=== PATIENT | male | born 1970 | race Caucasian/White ===

== ENCOUNTER 2020-01-16 12:32 | Emergency (ER) | payer OTHER, SELFPAY ==
--- NOTE | ~2020-01-16 | XR_ITS ---
EXAMINATION: XR hand LT min 3V DATE: 01/16/2020 12:59 INDICATION: Pain, swelling and erythema at the left second and third metacarpophalangeal joints. TECHNIQUE: Posteroanterior, oblique and lateral views of the left hand were obtained. COMPARISON: None. FINDINGS: Alignment is normal. No fracture. Joint spaces are normal. No cortical erosions or periosteal reactio n. Periarticular soft tissue swelling suggests at the dorsal aspect of the hand at the level of the h kilo of the metacarpals. IMPRESSION: 1. No osseous abnormality. Reviewed, dictated and finalized at location A. IMPRESSION: 1. No osseous abnormality.
[2020-01-16 12:37] VITALS: BP 120/97; PULSE 92; RESP 18; TEMP 36.9; O2SAT 97
--- NOTE | 2020-01-16 14:09 | ED.GENADULT ---
HPI - General Adult General Chief complaint: Extremity Injury, Upper Stated complaint: Infection L hand; sent from Urgent Care Time Seen by Provider: 01/16/20 13:16 Source: patient History of Present Illness HPI narrative: Patient presents with pain and swelling of the second and third knuckle of the left hand woke up with this morning.. Patient denies any trauma, patient been working in the backyard yesterday, reports wearing gloves. Patient denies any itching, on arrival to the emergency room he reported that the swelling and pain of the third knuckle is getting better almost improved. But the swelling of the second knuckle is still there which is worse with flexion and extension. Related Data Home Medications Medication Instructions Recorded Confirmed acyclovir 01/16/20 pantoprazole PO 01/16/20 Allergies Allergy/AdvReac Type Severity Reaction Status Date / Time acetaminophen Allergy Mild ITCHING Verified 01/16/20 12:41 hydrocodone Allergy Mild ITCHING Verified 01/16/20 12:41 Review of Systems Review of Systems: Narrative: CONSTITUTIONAL: Denies fever, chills, or sweats. EYES: Denies visual changes, redness, or discharge. ENT: Denies rhinorrhea, congestion, sore throat, or otalgia. CARDIOVASCULAR: Denies chest pain, palpitations, or edema. RESPIRATORY: Denies cough or dyspnea. GASTROINTESTINAL: Denies abdominal pain, nausea, vomiting, or diarrhea. GENITOURINARY: Denies dysuria or hematuria. SKIN: Denies rash or itching. MUSCULOSKELETAL: Denies back pain, joint pain, or myalgia. NEUROLOGIC: Denies headache, numbness, or weakness. PSYCHIATRIC: Denies anxiety or depression. PMFSH Social History Social History Gender identity (if verbalized by the patient): Male Exam Narrative: Exam Narrative: General appearance: Well-developed, well-nourished Skin: Normal color Head: Normocephalic, nontraumatic Eyes: Clear conjunctiva ENT: Oropharynx normal, ears normal, nose normal Neck: Supple, nontender Chest and respiratory: Airway patent, no respiratory distress, no accessory muscle use Heart: Regular rate/rhythm Vascular: Normal peripheral pulses, normal capillary refill. Musculoskeletal: Normal range of motion, nontender back. Left hand showed a lump likely ganglion cyst at the metatarsophalangeal joint dorsally of the left second finger. Tender to touch, slightly red, no erythema, no discharge, no signs of insect bite. Firm in consistency, no fluctuation. About 1 x 1 cm. Neurologic: Alert and oriented ?3, [employer] is normal as tested, no gross motor deficit Course Course Emergency Course: Unchanged, stable Vital Signs Vital signs: Vital Signs Temperature 36.9 C 01/16/20 12:37 Pulse Rate 92 01/16/20 12:37 Respiratory Rate 18 01/16/20 12:37 Blood Pressure 120/97 H 01/16/20 12:37 Pulse Oximetry 97 01/16/20 12:37 Temperature 36.9 C 01/16/20 12:37 Pulse Rate 92 01/16/20 12:37 Respiratory Rate 18 01/16/20 12:37 Blood Pressure 120/97 H 01/16/20 12:37 Pulse Oximetry 97 01/16/20 12:37 Procedures Abscess I/D hand: Date of Incision: 01/16/20 Time of Incision: 14:15 Side (if applicable): left Local Anesthetic: other anesthetic (Topical spray) Technique: needle aspiration Abcess I&D Additional Comments: I am not sure ,the lump on the second metatarsophalangeal joint is an abscess or a ganglion cyst. I tried to get needle aspiration which showed fresh red bright blood only. No purulent discharge. Patient tolerated the procedure well, the procedure was done under sterile field using Betadine and sterile drapes. Med
[2020-01-16] MEDS: CEPHALEXIN 500 MG CAPSULE PO (14:40)
[2020-01-16 14:41] VITALS: BP 147/82; PULSE 85; RESP 18; O2SAT 100
== END 2020-01-16 14:43 | disposition home or self-care (01) ==
PROVIDERS: Emergency Provider Emergency Medicine; PCP Nurse Practitioner Family
DX: M67.442 Ganglion, left hand (principal)
CPT/HCPCS: 10160; 73130; 99283; A9270

== ENCOUNTER 2023-01-07 20:44 | Emergency (ER) | payer BC, SELFPAY ==
[2023-01-07 20:46] VITALS: BP 163/83; PULSE 76; RESP 14; TEMP 36.6; O2SAT 99
--- NOTE | 2023-01-07 21:03 | ED.EAR ---
HPI - Ear Problem General Chief complaint: Ear Stated complaint: Right ear blockage Time Seen by Provider: 01/07/23 20:53 History of Present Illness HPI Narrative: 53-year-old male presented to the emergency department for evaluation of right ear pain and pressure. Patient states that the symptoms began yesterday and progressed to the day today. Patient states he does have history of seasonal allergies and has been taking Zyrtec twice daily for the last few days. Patient denies any cough colds or fevers. Patient does report some decreased in hearing on the right ear. Left ear has no issues. Related Data Home Medications Medication Instructions Recorded Confirmed acyclovir 400 mg tablet 01/16/20 pantoprazole 20 mg tablet,delayed PO 01/16/20 release Allergies Allergy/AdvReac Type Severity Reaction Status Date / Time acetaminophen Allergy Mild ITCHING Verified 01/16/20 12:41 hydrocodone Allergy Mild ITCHING Verified 01/16/20 12:41 Review of Systems Review of Systems: All systems reviewed & are unremarkable except as noted in HPI and below PMFSH Social History Social History Gender identity (if verbalized by the patient): Male Exam Narrative: APPEARANCE: Well appearing, no pain, no distress, well-nourished. HEAD: normocephalic, atraumatic. EYES: PERRLA/EOMI, conjunctivae clear. NOSE: Normal no drainage EARS: Distended TM on the right with fluid behind the right ear THROAT: Pharynx clear, no exudate. NECK: Supple. No adenopathy, no masses. RESPIRATORY: Airway patent, respirations nonlabored. Clear to auscultation bilaterally, no rales, rhonchi, wheezing. SKIN: Warm, dry. Normal Color Course Course Emergency Course: 53-year-old male presented to the emergency department for evaluation of right ear pain. Ear does appear to have otitis media. Patient was started on Augmentin in the emergency department and discharged home with Augmentin. Patient was encouraged to continue taking the Zyrtec. Patient was also provided follow-up with ENT. All questions concerns were addressed and patient was comfortable with the plan for discharge and close follow-up. Vital Signs Vital signs: Vital Signs Temperature 97.9 F 01/07/23 20:46 Pulse Rate 76 01/07/23 20:46 Respiratory Rate 14 01/07/23 20:46 Blood Pressure 163/83 H 01/07/23 20:46 Pulse Oximetry 99 01/07/23 20:46 Oxygen Delivery Room Air 01/07/23 20:46 Temperature 97.9 F 01/07/23 20:46 Pulse Rate 76 01/07/23 20:46 Respiratory Rate 14 01/07/23 20:46 Blood Pressure 163/83 H 01/07/23 20:46 Pulse Oximetry 99 01/07/23 20:46 Oxygen Delivery Room Air 01/07/23 20:46 Medical Decision Making Vital Signs Vital Signs: Vital Signs Temperature 97.9 F 01/07/23 20:46 Pulse Rate 76 01/07/23 20:46 Respiratory Rate 14 01/07/23 20:46 Blood Pressure 163/83 H 01/07/23 20:46 Pulse Oximetry 99 01/07/23 20:46 Oxygen Delivery Room Air 01/07/23 20:46 Temperature 97.9 F 01/07/23 20:46 Pulse Rate 76 01/07/23 20:46 Respiratory Rate 14 01/07/23 20:46 Blood Pressure 163/83 H 01/07/23 20:46 Pulse Oximetry 99 01/07/23 20:46 Oxygen Delivery Room Air 01/07/23 20:46 Discharge Plan Discharge Clinical Impression: Otitis media Patient Disposition: Home, Self-Care Condition: Stable Instructions: Antibiotic Form, Earache (ED) Additional Instructions: Antibiotic as directed until completed. Have close follow-up with your primary care physician. Additionally may need follow-up with ENT. If you have any worsening symptoms or if you have any questions or concerns then please call or return to the emergency department. Prescriptions: New amoxicillin-pot clavulanate 875-125 mg tablet 1 tablet PO Q12H Qty: 14 0RF No Action acyclovir 400 mg tablet pantoprazole 20 mg tablet,delayed release (DR/EC) PO
[2023-01-07] MEDS: AMOXICILLIN/CLAVULANATE K 875-125 MG TAB 1 TABLET PO (21:08)
== END 2023-01-07 21:11 | disposition home or self-care (01) ==
PROVIDERS: Emergency Provider Emergency Medicine; PCP Nurse Practitioner Family
DX: H66.91 Otitis media, unspecified, right ear (principal)
CPT/HCPCS: 99283; A9270

== ENCOUNTER 2024-03-05 08:23 | Emergency (ER) | payer BC, SELFPAY ==
--- NOTE | ~2024-03-05 | XR_ITS ---
EXAMINATION: XR chest 2V DATE: 03/05/2024 09:17 INDICATION: Fever. Cough. TECHNIQUE: Frontal and lateral views of the chest were obtained. COMPARISON: None. FINDINGS: There is no pneumonia, pleural effusion, or pneumothorax. The heart size is normal. There i s mild chronic anterior wedging of multiple vertebral bodies. IMPRESSION: 1. No acute cardiopulmonary disease. Reviewed, dictated and finalized at location A.
[2024-03-05 08:44] VITALS: BP 136/83; PULSE 111; RESP 18; TEMP 37.7; O2SAT 98
--- NOTE | 2024-03-05 09:02 | ED.URI ---
HPI - URI/Sore Throat General Chief Complaint: Upper Respiratory Infection Stated Complaint: upper respiratory infection Time Seen by Provider: 03/05/24 09:02 Source: patient, RN notes reviewed and old records reviewed Mode of arrival: ambulatory Limitations: no limitations History of Present Illness HPI Narrative: patient presents with complaints of 2 day history of fever, productive cough, general malaise, headache. He denies any wheezing or shortness of breath. He has not been taking anything for his symptoms. Related Data Home Medications Medication Instructions Recorded Confirmed acyclovir 400 mg tablet 01/16/20 pantoprazole 20 mg tablet,delayed PO 01/16/20 release Dhea Supp 03/05/24 Testosterone 200mg Cream 03/05/24 ascorbic acid 7.5 mg-vit E 7.5 tablet PO 03/05/24 unit-biotin 1,250 mcg chewable tablet cholecalciferol (vitamin D3) 10 10 mcg PO DAILY 03/05/24 03/05/24 mcg (400 unit) tablet dapagliflozin propanediol 10 mg mg 03/05/24 03/05/24 tablet (Farxiga) famotidine 10 mg tablet 10 mg PO DAILY 03/05/24 03/05/24 lisinopril 2.5 mg tablet mg 03/05/24 03/05/24 metformin 500 mg tablet,extended mg PO 03/05/24 release 24 hr multivit with minerals-iron 18 tablet PO 03/05/24 mg-folic ac 400 mcg-vit K 25 mcg tablet (Adults Multivitamin) omega-3 fatty acids 1,000 mg PO DAILY 03/05/24 03/05/24 potassium 20 mg chewable tablet mg PO 03/05/24 rosuvastatin 5 mg tablet mg 03/05/24 Allergies Allergy/AdvReac Type Severity Reaction Status Date / Time acetaminophen Allergy Mild ITCHING Verified 03/05/24 08:51 hydrocodone Allergy Mild ITCHING Verified 03/05/24 08:51 Review of Systems Review of Systems: All systems reviewed & are unremarkable except as noted in HPI and below Constitutional: Constitutional: Reports as per HPI, Reports no additional constitutional complaints, Reports fever(s), Reports headache(s), Reports lethargy and Reports malaise ENT: Reports system reviewed and no additional complaints, except as documented, Reports headache(s) and Reports nasal congestion Cardiovascular: Cardiovascular: Reports no additional cardiovascular complaints Respiratory: Respiratory: Reports no additional respiratory complaints, Reports chest congestion, Reports cough, Reports pain with cough and Denies dyspnea Gastrointestinal: Gastrointestinal: Reports no additional gastrointestinal complaints PMFSH Social History Social History Gender identity (if verbalized by the patient): Male Exam Const: General: cooperative, no acute distress, alert and awake Orientation/consciousness: oriented to person, oriented to place and oriented to time HENMT: Head: normal to inspection Ears: TM's normal bilaterally Throat: posterior oropharynx normal Resp: Effort & Inspection: normal respiratory effort and able to speak in complete sentences Auscultation: clear to auscultation bilaterally, no crackles, no rales, no rhonchi, no wheezes and diminished lung sounds on the right in the lower lung hansen Cardio: Palpation: normal PMI Rate: regular rate Rhythm: regular rhythm Heart sounds: S1 normal heart sound present and S2 normal heart sound present Neuro: General: oriented to person, oriented to place and oriented to time Cranial nerves: Yes CN's II-XII intact bilaterally Psych: Appearance: grossly normal Thought process: Normal thought process present Insight: Good insight present (Psych) Judgement: Good judgement present (Psych) Course Course Level of Care: Express Care Visit Vital Signs Vital signs: Vital Signs Temperature 99.8 F H 03/05/24 08:44 Pulse Rate 111 H 03/05/24 08:44 Respiratory Rate 18 03/05/24 08:44 Blood Pressure 136/83 03/05/24 08:44 Pulse Oximetry 98 03/05/24 08:44 Oxygen Delivery Room Air 03/05/24 08:44 Temperature 99.8 F H 03/05/24 08:44 Pulse Rate 111 H 03/05/24 08:44 Respiratory Rate
[2024-03-05 09:24] LABS: EDINFLUASCREEN Positive; EDINFLUBSCREEN Negative
== END 2024-03-05 09:35 | disposition home or self-care (01) ==
PROVIDERS: Emergency Provider Nurse Practitioner Family; PCP Family Medicine
DX: J10.1 Influenza due to other identified influenza virus with other respiratory manifestations (principal); Z20.822 Contact with and (suspected) exposure to COVID-19
CPT/HCPCS: 71046; 87426; 87804; 99213; G0463

== ENCOUNTER 2025-07-08 23:27 | Emergency (ER) | payer BC, SELFPAY ==
--- NOTE | 2025-07-08 23:50 | PC.NURSE ---
pressure dressing applied to wound
--- NOTE | 2025-07-09 01:14 | PC.NURSE ---
Pt states he does not want to wait and will be visiting PCP tomorrow AM. Risk of leaving ED explained to pt, pt verbalized understanding.
== END 2025-07-09 01:51 | disposition left against medical advice (07) ==
PROVIDERS: PCP Family Medicine
DX: S61.217A Laceration without foreign body of left little finger without damage to nail, initial encounter (principal)
CPT/HCPCS: 99199